=== PATIENT | male | born 1985 | race Hispanic/Latino ===

== ENCOUNTER 2018-12-17 21:49 | Emergency (ER) | payer SELFPAY ==
[~2018-12-17] VITALS: Ht 167.6 cm; Wt 75.0 kg
[2018-12-17 23:59] VITALS: BP 138/85
== END 2018-12-17 23:59 | disposition home or self-care (01) | DRG 605 ==
LOC: ED 21:49
PROC: 0HQ1XZZ Repair Face Skin, External Approach (ICD-10-PCS; principal; 2018-12-17)
DX: S01.411A Laceration without foreign body of right cheek and temporomandibular area, initial encounter (principal); S00.03XA Contusion of scalp, initial encounter; S01.511A Laceration without foreign body of lip, initial encounter; Y00.XXXA Assault by blunt object, initial encounter

== ENCOUNTER 2018-12-27 16:13 | Emergency (ER) | payer SELFPAY ==
[~2018-12-27] VITALS: Ht 167.6 cm; Wt 80.0 kg
[2018-12-27 16:55] VITALS: BP 142/90
== END 2018-12-27 16:55 | disposition home or self-care (01) | DRG 950 ==
LOC: ED 16:13
DX: S01.00XD Unspecified open wound of scalp, subsequent encounter (principal); S01.401D Unspecified open wound of right cheek and temporomandibular area, subsequent encounter; X58.XXXD Exposure to other specified factors, subsequent encounter

== ENCOUNTER 2019-01-31 12:16 | Emergency (ER) | payer SELFPAY ==
[~2019-01-31] VITALS: Ht 167.6 cm; Wt 65.0 kg
[2019-01-31 13:51] VITALS: BP 151/89
== END 2019-01-31 13:51 | disposition home or self-care (01) | DRG 103 ==
LOC: ED 12:16
DX: R51 Headache (principal)